=== PATIENT | male | born 1995 | race Hispanic/Latino ===

== ENCOUNTER 2017-12-06 10:14 | Emergency (ER) | payer SELFPAY ==
--- NOTE | 2017-12-06 11:42 | RAD REPORT ---
EXAM DESCRIPTION: RAD - Ankle Left 3 View -12/06/2017 11:30 am CLINICAL HISTORY: Left ankle pain status post injury FINDINGS: No fracture is seen. Soft tissue swelling is present. There is borderline widening of the medial clear space which may indicate an injury to the deltoid li gament.
--- NOTE | 2017-12-06 11:58 | EDPHYS ---
Physician Documentation [facility] Name: Vijay Levine Age: 22 yrs Sex: Male : 1995 Arrival Date: 12/06/2017 Time: 10:17 Bed 14 Private MD: None, None ED Physician Bernard Tijerina HPI: 12/06 11:55 This 22 yrs old Male presents to ER via Ambulatory with complaints of Ankle kb Injury. 11:55 The patient presents with pain, that is acute, swelling, tenderness. The complaints kb affect the left ankle. Onset: The symptoms/episode began/occurred yesterday. Context: The problem was sustained outdoors, resulted from twisted it while running in the rain, The patient can fully bear weight on the affected extremity. the patient is able to ambulate. Associated signs and symptoms: Pertinent positives: swelling, Pertinent negatives: calf tenderness, fever, nausea, numbness, rash, tingling, vomiting, warmth, weakness. Modifying factors: The symptoms are alleviated by nothing, the symptoms are aggravated by weight bearing, movement. Severity of symptoms: At their worst the symptoms were moderate, in the emergency department the symptoms are unchanged. The patient has not experienced similar symptoms in the past. The patient has not recently seen a physician. Historical: - Allergies: 10:35 No Known Allergies; aj1 - Home Meds: 10:35 None [Active]; aj1 - PMHx: 10:35 None; aj1 - PSHx: 10:35 None; aj1 - Immunization history:: Flu vaccine is not up to date. - Social history:: Smoking status: Patient/guardian denies using tobacco. - Ebola Screening: : Patient denies travel to an Ebola-affected area in the 21 days before illness onset. ROS: 11:49 Constitutional: Negative for fever, chills, and weight loss, Cardiovascular: Negative kb for chest pain, palpitations, and edema, Respiratory: Negative for shortness of breath, cough, wheezing, and pleuritic chest pain, Abdomen/GI: Negative for abdominal pain, nausea, vomiting, diarrhea, and constipation, Skin: Negative for injury, rash, and discoloration, Neuro: Negative for headache, weakness, numbness, tingling, and seizure. 11:49 MS/extremity: Positive for injury or acute deformity, pain, swelling, tenderness, of the left lateral ankle. Exam: 11:49 Constitutional: This is a well developed, well nourished patient who is awake, alert, kb and in no acute distress. Head/Face: Normocephalic, atraumatic. Chest/axilla: Normal chest wall appearance and motion. Nontender with no deformity. No lesions are appreciated. Cardiovascular: Regular rate and rhythm with a normal S1 and S2. No gallops, murmurs, or rubs. Normal PMI, no JVD. No pulse deficits. Respiratory: Lungs have equal breath sounds bilaterally, clear to auscultation and percussion. No rales, rhonchi or wheezes noted. No increased work of breathing, no retractions or nasal flaring. Abdomen/GI: Soft, non-tender, with normal bowel sounds. No distension or tympany. No guarding or rebound. No evidence of tenderness throughout. Skin: Warm, dry with normal turgor. Normal color with no rashes, no lesions, and no evidence of cellulitis. Neuro: Awake and alert, GCS 15, oriented to person, place, time, and situation. Cranial nerves II-XII grossly intact. Motor strength 5/5 in all extremities. Sensory grossly intact. Cerebellar exam normal. Normal gait. 11:49 Musculoskeletal/extremity: Extremities: grossly normal except: noted in the left lateral ankle: pain, swelling, tenderness, ROM: intact in all extremities, Circulation is intact in all extremities. Sensation intact. Weight bearing: able to fully bear weight. Vital Signs: 10:35 BP 121 / 68; Pulse 82; Resp 16; Temp 98.4(TE); Pulse Ox 98% on R/A; Weight 111.13 kg aj1 (R); Height 5 ft. 9 in. (175.26 cm) (R); Pain 7/10; 11:22 BP 119 / 66 LA (auto/lg); Pulse 92; Resp 18 S; Pulse Ox 100% on R/A; Pain 7/10; jp3 10:35 Body Mass Index 36.18 (111.13 kg, 175.26 cm) aj1 MDM: 10:53 Patient medically screened. kb 11:49 Data reviewed: vital signs, nurses notes. Data interpreted: Pulse oximetry: on room air kb is 100 %. Interpretation: normal. Counseling: I had a detailed discussion with the patient and/or guardian regarding: the historical points, exam findings, and any diagnostic results supporting the discharge/admit diagnosis, radiology results, the need for outpatient follow up, a orthopedic surgeon, to return to the emergency department if symptoms worsen or persist or if there are any questions or concerns that arise at home. 12/06 10:41 Order name: XRAY Ankle LEFT 3 view; Complete Time: 11:48 rn 12/06 11:58 Order name: Aircast Ankle Splint; Complete Time: 12:08 kb Administered Medications: No medications were administered Disposition: 12:35 Co-signature as Attending Physician, Bernard Tijerina MD. rn Disposition: 12/06/17 11:57 Discharged to Home. Impression: Sprain of ankle. - Condition is Stable. - Discharge Instructions: Ankle Sprain, [id number]. - Medication Reconciliation Form, Thank You Letter, Antibiotic Education, Prescription Opioid Use, Work release form form. - Follow up: Emergency Department; When: As needed; Reason: Worsening of condition. Follow up: Private Physician; When: 2 - 3 days; Reason: Recheck today's complaints, Continuance of care, Re-evaluation by your physician. Signatures: Dispatcher [employer] EDMS Lety Jiang, STAFF DESIGN ENGINEER-C STAFF DESIGN ENGINEER-Thomasb Angela Wilson RN RN aj1 Bernard Tijerina MD MD rn Smirch, Shelby, RN RN ss Corrections: (The following items were deleted from the chart) 12:13 11:57 12/06/2017 11:57 Discharged to Home. Impression: Sprain of ankle. Condition is ss Stable. Forms are Medication Reconciliation Form, Thank You Letter, Antibiotic Education, Prescription Opioid Use. Follow up: Emergency Department; When: As needed; Reason: Worsening of condition. Follow up: Private Physician; When: 2 - 3 days; Reason: Recheck today's complaints, Continuance of care, Re-evaluation by your physician. kb
--- NOTE | 2017-12-06 11:58 | ER ---
Nurse's Notes [facility] Name: Vijay Levine Age: 22 yrs Sex: Male : 1995 Arrival Date: 12/06/2017 Time: 10:17 Bed 14 Private MD: None, None Diagnosis: Sprain of ankle Presentation: 12/06 10:34 Presenting complaint: Patient states: He twisted his left ankle yesterday and today he aj1 was having difficulty walking because it is painful to bear weight. Transition of care: patient was not received from another setting of care. Onset of symptoms was December 05, 2017. Risk Assessment: Do you want to hurt yourself or someone else? Patient reports no desire to harm self or others. Initial Sepsis Screen: Does the patient meet any 2 criteria? No. Patient's initial sepsis screen is negative. Does the patient have a suspected source of infection? No. Patient's initial sepsis screen is negative. Care prior to arrival: None. 10:34 Method Of Arrival: Ambulatory aj 10:34 Acuity: DEVYN 4 aj1 Triage Assessment: 10:35 General: Appears in no apparent distress. uncomfortable, Behavior is calm, cooperative, aj1 appropriate for age. Pain: Complains of pain in left lateral ankle Pain currently is 7 out of 10 on a pain scale. Neuro: Level of Consciousness is awake, alert, obeys commands. Cardiovascular: Patient's skin is warm and dry. Respiratory: Airway is patent Respiratory effort is even, unlabored, Respiratory pattern is regular, symmetrical. Musculoskeletal: Range of motion: limited in left ankle. Historical: - Allergies: 10:35 No Known Allergies; aj1 - Home Meds: 10:35 None [Active]; aj1 - PMHx: 10:35 None; aj1 - PSHx: 10:35 None; aj1 - Immunization history:: Flu vaccine is not up to date. - Social history:: Smoking status: Patient/guardian denies using tobacco. - Ebola Screening: : Patient denies travel to an Ebola-affected area in the 21 days before illness onset. Screenin:15 Abuse screen: Denies threats or abuse. Denies injuries from another. Nutritional ss screening: No deficits noted. Tuberculosis screening: Never had TB. Fall Risk None identified. Assessment: 11:15 General: Appears in no apparent distress. comfortable, Behavior is calm, cooperative. ss Pain: Complains of pain in left lateral ankle Pain currently is 7 out of 10 on a pain scale. Quality of pain is described as aching, tender, Pain began yesterday. ambulated to exam room with steady gait Is continuous. Neuro: Level of Consciousness is awake, alert, obeys commands, Oriented to person, place, time, situation. Cardiovascular: Capillary refill < 3 seconds is brisk in bilateral fingers. Respiratory: Airway is patent Respiratory effort is even, unlabored, Respiratory pattern is regular, symmetrical. GI: No signs and/or symptoms were reported involving the gastrointestinal system. EENT: Nares with drainage noted Oral mucosa is moist. Derm: Skin is intact, is healthy with good turgor, Skin is moist, Skin is pink, warm \T\ dry. normal. Musculoskeletal: mild swelling noted to L lateral aspect of ankle. Vital Signs: 10:35 BP 121 / 68; Pulse 82; Resp 16; Temp 98.4(TE); Pulse Ox 98% on R/A; Weight 111.13 kg aj1 (R); Height 5 ft. 9 in. (175.26 cm) (R); Pain 7/10; 11:22 BP 119 / 66 LA (auto/lg); Pulse 92; Resp 18 S; Pulse Ox 100% on R/A; Pain 7/10; jp3 10:35 Body Mass Index 36.18 (111.13 kg, 175.26 cm) aj1 ED Course: 10:17 Patient arrived in ED. sb2 10:18 None, None is Private Physician. sb2 10:35 Triage completed. aj1 10:35 Arm band placed on Patient placed in waiting room, Patient notified of wait time. aj1 10:52 [facility]C [facility] kb 10:52 Bernard Tijerina MD is Attending Physician. kb 11:26 Bed in low position. Call light in reach. Side rails up X 1. Pulse ox on. NIBP on. jp3 11:29 X-ray completed. Portable x-ray completed in exam room. Patient tolerated procedure mh1 well. 11:30 XRAY Ankle LEFT 3 view In Process Unspecified. EDMS 11:55 Margarita Trujillo, MIGUELANGEL is Primary Nurse. ss 12:10 Luis wrap to left ankle Air stirrup applied to left ankle. jp3 12:12 No provider procedures requiring assistance completed. Patient did not have IV access ss during this emergency room visit. Administered Medications: No medications were administered Outcome: 11:57 Discharge ordered by . felicity 12:12 Discharged to home ambulatory, with family. ss 12:12 Condition: good 12:12 Discharge instructions given to patient, family, Instructed on discharge instructions, follow up and referral plans. medication usage, Demonstrated understanding of instructions, follow-up care, medications. 12:13 Patient left the ED. ss Signatures: Dispatcher [employer] EDMS Lety Jiang, SAMPLE ROOM SUPERVISOR-C SAMPLE ROOM SUPERVISOR-Ckb Angela Wilson, RN RN aj1 Dayna Kumar mh1 Margarita Trujillo, MIGUELANGEL RN Meli Santoyo sb2 Sonny Saeed jp3
== END 2017-12-06 12:13 | disposition home or self-care (01) ==
LOC: ER 10:14
DX: S93.402A Sprain of unspecified ligament of left ankle, initial encounter (principal); X58.XXXA Exposure to other specified factors, initial encounter; Y93.02 Activity, running; Y92.9 Unspecified place or not applicable
CPT/HCPCS: 99283

== ENCOUNTER 2018-01-15 16:16 | Emergency (ER) | payer SELFPAY ==
--- NOTE | 2018-01-15 16:37 | EDPHYS ---
Physician Documentation [facility] Name: Vijay Levine Age: 22 yrs Sex: Male : 1995 Arrival Date: 01/15/2018 Time: 16:17 Bed 6 Private MD: ED Physician Bernard Tijerina HPI: 01/15 16:34 This 22 yrs old Male presents to ER via Ambulatory with complaints of kb Nausea/Vomiting/Diarrhea. 16:34 The patient presents to the emergency department with nausea, vomiting, abdominal pain. kb Onset: The symptoms/episode began/occurred this morning. Possible causes: bad food exposure. The symptoms are aggravated by nothing. The symptoms are alleviated by nothing. Associated signs and symptoms: Pertinent positives: abdominal pain, nausea, vomiting, Pertinent negatives: anorexia, belching, constipation, diarrhea, dysuria, fever, flatulence, GI bleeding, hematuria. Severity of symptoms: At their worst the symptoms were mild in the emergency department the symptoms have resolved and did so earlier today. The patient has not experienced similar symptoms in the past. The patient has not recently seen a physician. Pt states he ate some cake last night and it was recalled so he's not sure if it was good. Started having mild abd pain and nausea this morning, vomited once and was sent home from work. Has eaten a meal since then and was able to keep it down. Denies any symptoms at this time, including pain and nausea. . Historical: - Allergies: 16:20 No Known Allergies; hj - Home Meds: 16:20 None [Active]; hj - PMHx: 16:20 None; hj - PSHx: 16:20 None; hj - Immunization history:: Adult Immunizations up to date. - Social history:: Smoking status: Patient/guardian denies using tobacco, Patient/guardian denies using alcohol. - Ebola Screening: : Patient negative for fever greater than or equal to 101.5 degrees Fahrenheit, and additional compatible Ebola Virus Disease symptoms Patient denies exposure to infectious person Patient denies travel to an Ebola-affected area in the 21 days before illness onset. ROS: 16:34 Constitutional: Negative for fever, chills, and weight loss, ENT: Negative for injury, kb pain, and discharge, Neck: Negative for injury, pain, and swelling, Cardiovascular: Negative for chest pain, palpitations, and edema, Respiratory: Negative for shortness of breath, cough, wheezing, and pleuritic chest pain, Abdomen/GI: Negative for abdominal pain, nausea, vomiting, diarrhea, and constipation, Back: Negative for injury and pain, : Negative for injury, bleeding, discharge, and swelling, MS/Extremity: Negative for injury and deformity, Skin: Negative for injury, rash, and discoloration, Neuro: Negative for headache, weakness, numbness, tingling, and seizure. Exam: 16:34 Constitutional: This is a well developed, well nourished patient who is awake, alert, kb and in no acute distress. Head/Face: Normocephalic, atraumatic. ENT: Nares patent. No nasal discharge, no septal abnormalities noted. Tympanic membranes are normal and external auditory canals are clear. Oropharynx with no redness, swelling, or masses, exudates, or evidence of obstruction, uvula midline. Mucous membranes moist. Neck: Trachea midline, no thyromegaly or masses palpated, and no cervical lymphadenopathy. Supple, full range of motion without nuchal rigidity, or vertebral point tenderness. No Meningismus. Chest/axilla: Normal chest wall appearance and motion. Nontender with no deformity. No lesions are appreciated. Cardiovascular: Regular rate and rhythm with a normal S1 and S2. No gallops, murmurs, or rubs. Normal PMI, no JVD. No pulse deficits. Respiratory: Lungs have equal breath sounds bilaterally, clear to auscultation and percussion. No rales, rhonchi or wheezes noted. No increased work of breathing, no retractions or nasal flaring. Abdomen/GI: Soft, non-tender, with normal bowel sounds. No distension or tympany. No guarding or rebound. No evidence of tenderness throughout. Skin: Warm, dry with normal turgor. Normal color with no rashes, no lesions, and no evidence of cellulitis. MS/ Extremity: Pulses equal, no cyanosis. Neurovascular intact. Full, normal range of motion. Neuro: Awake and alert, GCS 15, oriented to person, place, time, and situation. Cranial nerves II-XII grossly intact. Motor strength 5/5 in all extremities. Sensory grossly intact. Cerebellar exam normal. Normal gait. Vital Signs: 16:21 BP 118 / 48; Pulse 82; Resp 18; Temp 98.5(TE); Pulse Ox 99% on R/A; Weight 113.4 kg; hj Height 5 ft. 9 in. (175.26 cm); Pain 6/10; 16:21 Body Mass Index 36.92 (113.40 kg, 175.26 cm) MDM: 16:23 Patient medically screened. kb 16:28 Data reviewed: vital signs, nurses notes. Data interpreted: Pulse oximetry: on room air kb is 99 %. Interpretation: normal. 16:34 Counseling: I had a detailed discussion with the patient and/or guardian regarding: the kb historical points, exam findings, and any diagnostic results supporting the discharge/admit diagnosis, lab results, the need for outpatient follow up, a family practitioner, to return to the emergency department if symptoms worsen or persist or if there are any questions or concerns that arise at home. 16:36 ED course: Pt has no tenderness upon palpation. Denies any medical complaint at this kb time. All symptoms resolved this morning. . 01/15 16:41 Order name: Urine Dipstick--Ancillary (enter results) bd Administered Medications: No medications were administered Disposition: 17:45 Co-signature as Attending Physician, Bernard Tijerina MD. rn Disposition: 01/15/18 16:37 Discharged to Home. Impression: Nausea with vomiting, unspecified - resolved fishing boat captain. - Condition is Stable. - Discharge Instructions: Nausea and Vomiting, Adult, [id number]. - Medication Reconciliation Form, Thank You Letter, Antibiotic Education, Prescription Opioid Use, Work release form form. - Follow up: Emergency Department; When: As needed; Reason: Worsening of condition. Follow up: Private Physician; When: 2 - 3 days; Reason: Recheck today's complaints, Continuance of care, Re-evaluation by your physician. Signatures: Dispatcher [employer] EDLety Perez, ANGIE INSIDE ACCOUNT REPRESENTATIVE-Maureen Melendrez RN Bernard Harris ch, MD MD rn Joaquin, Henry, RN RN hj Corrections: (The following items were deleted from the chart) 16:51 16:37 01/15/2018 16:37 Discharged to Home. 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 Forms are Medication Reconciliation Form, Thank You Letter, Antibiotic Education, Prescription Opioid Use. Follow up: Emergency Department; When: As needed; Reason: Worsening of condition. Follow up: Private Physician; When: 2 - 3 days; Reason: Recheck today's complaints, Continuance of care, Re-evaluation by your physician. kb
--- NOTE | 2018-01-15 16:37 | ER ---
Nurse's Notes [facility] Name: Vijay Levine Age: 22 yrs Sex: Male : 1995 Arrival Date: 01/15/2018 Time: 16:17 Bed 6 Private MD: Diagnosis: Nausea with vomiting, unspecified-resolved airline captain Presentation: 01/15 16:18 Presenting complaint: Patient states: this morning i started getting nauseous and hj vomited x 1; reports abd pain on R upper area; reports diarrhea; denies fever and chills;. Transition of care: patient was not received from another setting of care. Onset of symptoms was January 15, 2018. Risk Assessment: Do you want to hurt yourself or someone else? Patient reports no desire to harm self or others. Initial Sepsis Screen: Does the patient meet any 2 criteria? No. Patient's initial sepsis screen is negative. Does the patient have a suspected source of infection? No. Patient's initial sepsis screen is negative. Care prior to arrival: None. 16:18 Method Of Arrival: Ambulatory 16:18 Acuity: DEVYN 3 hj Triage Assessment: 16:20 General: Appears in no apparent distress. uncomfortable, Behavior is calm, cooperative, hj appropriate for age. Pain: Complains of pain in abdomen. GI: Reports upper abdominal pain, diarrhea, nausea, vomiting. Historical: - Allergies: 16:20 No Known Allergies; hj - Home Meds: 16:20 None [Active]; hj - PMHx: 16:20 None; hj - PSHx: 16:20 None; hj - Immunization history:: Adult Immunizations up to date. - Social history:: Smoking status: Patient/guardian denies using tobacco, Patient/guardian denies using alcohol. - Ebola Screening: : Patient negative for fever greater than or equal to 101.5 degrees Fahrenheit, and additional compatible Ebola Virus Disease symptoms Patient denies exposure to infectious person Patient denies travel to an Ebola-affected area in the 21 days before illness onset. Screenin:20 Abuse screen: Denies threats or abuse. Denies injuries from another. Nutritional hj screening: No deficits noted. Tuberculosis screening: No symptoms or risk factors identified. Fall Risk None identified. Assessment: 16:21 GI: Abdomen is non-distended, obese. 16:28 Reassessment: Patient appears in no apparent distress at this time. Patient and/or ch family updated on plan of care and expected duration. Pain level reassessed. Patient is alert, oriented x 3, equal unlabored respirations, skin warm/dry/pink. Patient states feeling better. Patient states symptoms have improved. General: Appears in no apparent distress. comfortable, Behavior is calm, cooperative, appropriate for age. Pain: Denies pain. Neuro: No deficits noted. Level of Consciousness is awake, alert, obeys commands, Oriented to person, place, time, situation. Cardiovascular: No deficits noted. Respiratory: No deficits noted. GI: Bowel sounds present X 4 quads. Abd is soft and non tender X 4 quads. Reports vomiting, pt vomited once this morning, states he feels fine now. : No signs and/or symptoms were reported regarding the genitourinary system. Derm: Skin is pink, warm \T\ dry. Vital Signs: 16:21 BP 118 / 48; Pulse 82; Resp 18; Temp 98.5(TE); Pulse Ox 99% on R/A; Weight 113.4 kg; hj Height 5 ft. 9 in. (175.26 cm); Pain 6/10; 16:21 Body Mass Index 36.92 (113.40 kg, 175.26 cm) hj ED Course: 16:17 Patient arrived in ED. as 16:20 Triage completed. hj 16:20 Arm band placed on left wrist. hj 16:21 Patient has correct armband on for positive identification. Placed in gown. Bed in low hj position. Call light in reach. Adult w/ patient. 16:23 Lety Jiang FNP-C is [facility]. kb 16:23 Bernard Tijerina MD is Attending Physician. kb 16:28 Maureen Calderon, MIGUELANGEL is Primary Nurse. 16:28 No apparent distress. Resting quietly. 16:28 No provider procedures requiring assistance completed. Patient did not have IV access ch during this emergency room visit. 16:35 Urine collected: clean catch specimen, clear. rv Administered Medications: No medications were administered Outcome: 16:37 Discharge ordered by . kb 16:51 Discharged to home ambulatory, with family. 16:51 Condition: stable 16:51 Discharge instructions given to patient, family, Instructed on discharge instructions, follow up and referral plans. Demonstrated understanding of instructions, follow-up care. 16:51 Patient left the ED. Signatures: Lety Jiang, ANGIE MEZA-Maureen Melendrez RN RN Melissa Carrion Henry, RN RN hj Vicente, Ronaldo, RN RN rv Corrections: (The following items were deleted from the chart) 16:23 16:21 Pulse 82bpm; Resp 18bpm; Pulse Ox 99% RA; Temp 98.5F Temporal; 113.4 kg; Height 5 hj ft. 9 in.; BMI: 36.9; Pain 6/10; hj
[2018-01-15 17:17] LABS: Urine Blood NEGATIVE (NEG); Urine Glucose NEGATIVE (NEG); Urine Protein NEGATIVE (NEG); Urine Specific Gravity >1.030 (1.005-1.030)
== END 2018-01-15 16:51 | disposition home or self-care (01) ==
LOC: ER 16:16
DX: R11.2 Nausea with vomiting, unspecified (principal)
CPT/HCPCS: 81003; 99283

== ENCOUNTER 2018-08-29 20:35 | Emergency (ER) | payer SELFPAY ==
[2018-08-29] MEDS ORDERED: ACETAMINOPHEN 500 MG TAB ONE (21:09)
[2018-08-29 22:24] LABS: Urine Blood NEGATIVE (NEG); Urine Glucose NEGATIVE (NEG); Urine Protein 1+ (NEG); Urine Specific Gravity 1.025 (1.005-1.030)
--- NOTE | 2018-08-29 22:46 | ER ---
Nurse's Notes [facility] Name: Vijay Levine Age: 22 yrs Sex: Male : 1995 Arrival Date: 08/29/2018 Time: 20:40 Bed 7 Private MD: Diagnosis: Fever, unspecified;Influenza due to unidentified influenza virus Presentation: 08/29 20:45 Presenting complaint: Patient states: Fever, lightheaded and nauseated since yesterday. cc3 Transition of care: patient was not received from another setting of care. Onset of symptoms was August 28, 2018. Risk Assessment: Do you want to hurt yourself or someone else? Patient reports no desire to harm self or others. Initial Sepsis Screen: Does the patient meet any 2 criteria? Temp <36.0*C (96.8*F)) or > 38.3*C (100.9*F). HR > 90 bpm. Does the patient have a suspected source of infection? No. Patient's initial sepsis screen is negative. Care prior to arrival: None. 20:45 Method Of Arrival: Ambulatory cc3 20:45 Acuity: DEVYN 3 cc3 Triage Assessment: 20:45 General: Appears in no apparent distress. comfortable, Behavior is calm, cooperative, cc3 appropriate for age. Pain: Denies pain. EENT: No signs and/or symptoms were reported regarding the EENT system. Neuro: Level of Consciousness is awake, alert, obeys commands, Oriented to person, place, time, situation, Appropriate for age. Cardiovascular: Denies chest pain, Patient's skin is warm and dry. Respiratory: Airway is patent Respiratory effort is even, unlabored, Respiratory pattern is regular, symmetrical. GI: Reports nausea. : No signs and/or symptoms were reported regarding the genitourinary system. Derm: Skin is intact, is healthy with good turgor, Skin is pink, warm \T\ dry. normal, Skin temperature is hot. Musculoskeletal: Circulation, motion, and sensation intact. Range of motion: intact in all extremities. Historical: - Allergies: 20:45 No Known Allergies; cc3 - Home Meds: 20:45 None [Active]; cc3 - PMHx: 20:45 None; cc3 - PSHx: 20:45 Ear Tubes; cc3 - Immunization history:: Adult Immunizations not up to date. - Social history:: Smoking status: Patient/guardian denies using tobacco, never smoked. - Ebola Screening: : No symptoms or risks identified at this time. Screenin:45 Abuse screen: Denies threats or abuse. Denies injuries from another. Nutritional cc3 screening: No deficits noted. Tuberculosis screening: No symptoms or risk factors identified. Fall Risk Ambulatory Aid- None/Bed Rest/Nurse Assist (0 pts). Gait- Normal/Bed Rest/Wheelchair (0 pts) Mental Status- Oriented to own ability (0 pts). Assessment: 20:45 General: see triage assessment. cc3 21:50 Reassessment: Patient appears in no apparent distress at this time. Patient and/or cc3 family updated on plan of care and expected duration. Pain level reassessed. Patient is alert, oriented x 3, equal unlabored respirations, skin warm/dry/pink. Patient denies pain at this time. Patient states feeling better. Patient states symptoms have improved. 22:15 Reassessment: Patient appears in no apparent distress at this time. Patient and/or cc3 family updated on plan of care and expected duration. Pain level reassessed. Patient is alert, oriented x 3, equal unlabored respirations, skin warm/dry/pink. 22:50 Reassessment: Patient appears in no apparent distress at this time. Patient and/or cc3 family updated on plan of care and expected duration. Pain level reassessed. Patient is alert, oriented x 3, equal unlabored respirations, skin warm/dry/pink. ELECTRICAL CHECKOUT MECHANIC Vannesa discharged the patient home with prescriptions given. No IV cannula in situ. Patient left ER vitally stable and ambulatory with his . Patient denies pain at this time. Patient states feeling better. Patient states symptoms have improved. Vital Signs: 20:45 BP 136 / 72; Pulse 101; Resp 18 S; Temp 103.1(O); Pulse Ox 98% on R/A; Weight 113.4 kg cc3 (R); Height 5 ft. 9 in. (175.26 cm) (R); Pain 0/10; 21:53 BP 130 / 75; Pulse 92; Resp 18 S; Pulse Ox 97% on R/A; jd3 21:54 Temp 101.4(O); cc3 22:17 BP 129 / 54; Pulse 89; Resp 17 S; Pulse Ox 98% on R/A; cc3 22:21 BP 117 / 40 Supine; Pulse 91; Resp 17 S; Temp 100.6(O); Pulse Ox 97% on R/A; cc3 22:23 BP 119 / 39 Sitting; Pulse 94; Resp 18 S; Temp 100.6(O); Pulse Ox 98% on R/A; cc3 22:25 BP 108 / 39 Standing; Pulse 93; Resp 17 S; Temp 100.6(O); Pulse Ox 98% on R/A; cc3 20:45 Body Mass Index 36.92 (113.40 kg, 175.26 cm) cc3 ED Course: 20:40 Patient arrived in ED. es 20:45 Arm band placed on right wrist. Patient notified of wait time. cc3 20:45 Patient has correct armband on for positive identification. Bed in low position. Call cc3 light in reach. Side rails up X 1. Pulse ox on. NIBP on. 20:49 Gris Burleson is Primary Nurse. cc3 20:52 Triage completed. cc3 20:54 Vannesa Dimas FNP-C [facility]. snw 20:54 Mikey Becker MD is Attending Physician. snw 22:50 No provider procedures requiring assistance completed. Patient did not have IV access cc3 during this emergency room visit. Administered Medications: 20:57 Drug: Tylenol 1000 mg Route: PO; jd3 21:53 Follow up: Response: No adverse reaction; Temperature is decreased cc3 Outcome: 22:46 Discharge ordered by . snw 22:50 Discharged to home ambulatory, with family. cc3 22:50 Condition: stable 22:50 Discharge instructions given to patient, family, Instructed on discharge instructions, follow up and referral plans. medication usage, Demonstrated understanding of instructions, follow-up care, medications, Prescriptions given X 2. 22:57 Patient left the ED. cc3 Signatures: Vannesa Dimas FNP-C TEXTILE SCREEN MAKER-Csnw Sejal Bowling Jonathon RN RN jd3 Gris Burleson cc3
--- NOTE | 2018-08-29 22:47 | EDPHYS ---
Physician Documentation [facility] [place], [place] Name: Vijay Levine Age: 22 yrs Sex: Male : 1995 Arrival Date: 08/29/2018 Time: 20:40 Bed 7 Private MD: ED Physician Mikey Becker HPI: 08/29 21:16 This 22 yrs old Male presents to ER via Ambulatory with complaints of Fever, snw Nausea, Dizziness. 21:16 The patient reports fever, that was measured at 103.1 degrees Fahrenheit. Onset: The snw symptoms/episode began/occurred suddenly, last night. Modifying factors: there are no obvious modifying factors. Associated signs and symptoms: Pertinent positives: decreased appetite, nausea, sore throat. Severity of symptoms: At their worst the symptoms were moderate in the emergency department the symptoms are unchanged. The patient has not experienced similar symptoms in the past. It is unknown whether or not the patient has recently seen a physician. Historical: - Allergies: 20:45 No Known Allergies; cc3 - Home Meds: 20:45 None [Active]; cc3 - PMHx: 20:45 None; cc3 - PSHx: 20:45 Ear Tubes; cc3 - Immunization history:: Adult Immunizations not up to date. - Social history:: Smoking status: Patient/guardian denies using tobacco, never smoked. - Ebola Screening: : No symptoms or risks identified at this time. ROS: 21:15 Eyes: Negative for injury, pain, redness, and discharge, ENT: Negative for injury and snw discharge, + sore throat Neck: Negative for injury, pain, and swelling, Cardiovascular: Negative for chest pain, palpitations, and edema, Respiratory: Negative for shortness of breath, cough, wheezing, and pleuritic chest pain, Back: Negative for injury and pain, : Negative for injury, bleeding, discharge, and swelling, MS/Extremity: Negative for injury and deformity, Skin: Negative for injury, rash, and discoloration, Neuro: Negative for headache, weakness, numbness, tingling, and seizure. 21:15 Constitutional: Positive for body aches, fatigue, fever, malaise, poor PO intake. 21:15 Abdomen/GI: Positive for nausea and vomiting. Exam: 21:15 Constitutional: This is a well developed, well nourished patient who is awake, alert, snw and in no acute distress. Head/Face: Normocephalic, atraumatic. Eyes: Pupils equal round and reactive to light, extra-ocular motions intact. Lids and lashes normal. Conjunctiva and sclera are non-icteric and not injected. Cornea within normal limits. Periorbital areas with no swelling, redness, or edema. ENT: Nares patent. No nasal discharge, no septal abnormalities noted. Tympanic membranes are normal and external auditory canals are clear. Oropharynx with no redness, swelling, or masses, exudates, or evidence of obstruction, uvula midline. Mucous membranes moist. Neck: Trachea midline, no thyromegaly or masses palpated, and no cervical lymphadenopathy. Supple, full range of motion without nuchal rigidity, or vertebral point tenderness. No Meningismus. Chest/axilla: Normal chest wall appearance and motion. Nontender with no deformity. No lesions are appreciated. Cardiovascular: Regular rate and rhythm with a normal S1 and S2. No gallops, murmurs, or rubs. Normal PMI, no JVD. No pulse deficits. Respiratory: Lungs have equal breath sounds bilaterally, clear to auscultation and percussion. No rales, rhonchi or wheezes noted. No increased work of breathing, no retractions or nasal flaring. 21:15 Back: No spinal tenderness. No costovertebral tenderness. Full range of motion. Skin: Warm, dry with normal turgor. Normal color with no rashes, no lesions, and no evidence of cellulitis. MS/ Extremity: Pulses equal, no cyanosis. Neurovascular intact. Full, normal range of motion. Neuro: Awake and alert, GCS 15, oriented to person, place, time, and situation. Cranial nerves II-XII grossly intact. Motor strength 5/5 in all extremities. Sensory grossly intact. Cerebellar exam normal. Normal gait. Psych: Awake, alert, with orientation to person, place and time. Behavior, mood, and affect are within normal limits. 21:15 Abdomen/GI: Exam negative for acute changes, Inspection: abdomen appears normal. Vital Signs: 20:45 BP 136 / 72; Pulse 101; Resp 18 S; Temp 103.1(O); Pulse Ox 98% on R/A; Weight 113.4 kg cc3 (R); Height 5 ft. 9 in. (175.26 cm) (R); Pain 0/10; 21:53 BP 130 / 75; Pulse 92; Resp 18 S; Pulse Ox 97% on R/A; jd3 21:54 Temp 101.4(O); cc3 22:17 BP 129 / 54; Pulse 89; Resp 17 S; Pulse Ox 98% on R/A; cc3 22:21 BP 117 / 40 Supine; Pulse 91; Resp 17 S; Temp 100.6(O); Pulse Ox 97% on R/A; cc3 22:23 BP 119 / 39 Sitting; Pulse 94; Resp 18 S; Temp 100.6(O); Pulse Ox 98% on R/A; cc3 22:25 BP 108 / 39 Standing; Pulse 93; Resp 17 S; Temp 100.6(O); Pulse Ox 98% on R/A; cc3 20:45 Body Mass Index 36.92 (113.40 kg, 175.26 cm) cc3 MDM: 20:55 Patient medically screened. snw 22:49 Data reviewed: vital signs, nurses notes. Data interpreted: Pulse oximetry: on room air snw is 98 %. Interpretation: normal. Counseling: I had a detailed discussion with the patient and/or guardian regarding: the historical points, exam findings, and any diagnostic results supporting the discharge/admit diagnosis, lab results, the need for outpatient follow up, to return to the emergency department if symptoms worsen or persist or if there are any questions or concerns that arise at home. Special discussion: Based on the history and exam findings, there is no indication for further emergent testing or inpatient evaluation. I discussed with the patient/guardian the need to see the primary care provider for further evaluation of the symptoms. 08/29 20:55 Order name: Flu; Complete Time: 21:51 snw 08/29 20:55 Order name: Strep; Complete Time: 21:51 snw 08/29 21:41 Order name: Throat Culture EDMS 08/29 22:09 Order name: Urine Dipstick--Ancillary (enter results); Complete Time: 22:38 ar5 08/29 21:52 Order name: Urine Dipstick-Ancillary (obtain specimen); Complete Time: 22:10 snw 08/29 21:52 Order name: Recheck VS; Complete Time: 21:53 snw 08/29 22:19 Order name: Orthostatics; Complete Time: 22:31 snw 08/29 22:38 Order name: PO challenge; Complete Time: 22:42 snw Administered Medications: 20:57 Drug: Tylenol 1000 mg Route: PO; jd3 21:53 Follow up: Response: No adverse reaction; Temperature is decreased cc3 Disposition: 08/30 14:00 Co-signature as Attending Physician, Mikey Becker MD I agree with the assessment and [facility] plan of care. Disposition: 08/29/18 22:46 Discharged to Home. Impression: Fever, unspecified, Influenza due to unidentified influenza virus. - Condition is Stable. - Discharge Instructions: Fever, Adult, Influenza, Adult, Rehydration, Adult. - Prescriptions for Zofran 4 mg Oral Tablet - take 1 tablet by ORAL route every 12 hours As needed; 20 tablet. Tamiflu 75 mg Oral Capsule - take 1 tablet by ORAL route every 12 hours for 5 days; 10 tablet. - Work release form, Medication Reconciliation Form, Thank You Letter, Antibiotic Education, Prescription Opioid Use form. - Follow up: Private Physician; When: 2 - 3 days; Reason: Recheck today's complaints, Continuance of care, Re-evaluation by your physician. Follow up: Emergency Department; When: As needed; Reason: Worsening of condition. Signatures: Dispatcher [employer] Mikey Griffin MD MD cha Therrien, Shelly, SPECIAL FORCES WEAPONS SERGEANT-C [employer]GEANT-Vaibhavw Torrey Leyva, RN RN jd3 Gris Burleson cc3 Corrections: (The following items were deleted from the chart) 08/29 22:57 22:46 08/29/2018 22:46 Discharged to Home. Impression: Fever, unspecified; Influenza cc3 due to unidentified influenza virus. Condition is Stable. Forms are Medication Reconciliation Form, Thank You Letter, Antibiotic Education, Prescription Opioid Use. Follow up: Private Physician; When: 2 - 3 days; Reason: Recheck today's complaints, Continuance of care, Re-evaluation by your physician. Follow up: Emergency Department; When: As needed; Reason: Worsening of condition. snw
== END 2018-08-29 22:57 | disposition home or self-care (01) ==
LOC: ER 20:35
DX: J11.1 Influenza due to unidentified influenza virus with other respiratory manifestations (principal)
CPT/HCPCS: 81003; 87070; 87081; 87804; 99283

== ENCOUNTER 2018-08-31 02:07 | Emergency (ER) | payer SELFPAY ==
--- NOTE | 2018-08-31 02:27 | EDPHYS ---
Physician Documentation [facility] Name: Vijay Levine IV Age: 22 yrs Sex: Male : 1995 Arrival Date: 08/31/2018 Time: 02:10 Bed 6 Private MD: ED Physician Christy Bell HPI: 08/31 02:24 This 22 yrs old Male presents to ER via Ambulatory with complaints of ma2 Dizziness, Sore Throat, Difficulty Swallowing, Nausea. 02:24 Onset: The symptoms/episode began/occurred gradually, 2 day(s) ago. Associated signs ma2 and symptoms: Pertinent positives: sore throat runny nose and fevere . Severity of symptoms: At their worst the symptoms were moderate in the emergency department the symptoms are unchanged. Historical: - Allergies: 02:24 No Known Allergies; tl1 - Home Meds: 02:24 Tamiflu 75 mg Oral cap [Active]; Zofran (as hydrochloride) 4 mg Oral tab [Active]; tl1 - PMHx: 02:24 None; tl1 - PSHx: 02:24 Ear Tubes; tl1 - Immunization history:: Adult Immunizations up to date. - Social history:: Patient/guardian denies using alcohol, street drugs, The patient lives with family, Smoking status: Patient/guardian denies using tobacco, never smoked, Patient/guardian denies using alcohol, street drugs. - Family history:: not pertinent. - Ebola Screening: : Patient negative for fever greater than or equal to 101.5 degrees Fahrenheit, and additional compatible Ebola Virus Disease symptoms Patient denies exposure to infectious person Patient denies travel to an Ebola-affected area in the 21 days before illness onset. ROS: 02:24 Constitutional: Negative for fever, chills, and weight loss. ma2 02:24 ENT: Positive for nasal discharge, sore throat, Negative for pulling at ears. 02:24 All other systems are negative. Exam: 02:24 Chest/axilla: Normal chest wall appearance and motion. Nontender with no deformity. ma2 No lesions are appreciated. Cardiovascular: Regular rate and rhythm with a normal S1 and S2. No gallops, murmurs, or rubs. Normal PMI, no JVD. No pulse deficits. Respiratory: Lungs have equal breath sounds bilaterally, clear to auscultation and percussion. No rales, rhonchi or wheezes noted. No increased work of breathing, no retractions or nasal flaring. Abdomen/GI: Soft, non-tender, with normal bowel sounds. No distension or tympany. No guarding or rebound. No evidence of tenderness throughout. Neuro: Awake and alert, GCS 15, oriented to person, place, time, and situation. Cranial nerves II-XII grossly intact. Motor strength 5/5 in all extremities. Sensory grossly intact. Cerebellar exam normal. Normal gait. 02:24 ENT: TM's: are normal, Nose: is normal, Posterior pharynx: Tonsils: bilaterally enlarged, with exudate, erythema, that is moderate, peritonsillar mass, is not appreciated. Vital Signs: 02:25 BP 134 / 69; Pulse 108; Resp 17; Temp 103.1(O); Pulse Ox 97% ; Weight 113.4 kg; Height tl1 5 ft. 9 in. (175.26 cm); Pain 10/10; 02:57 BP 127 / 68; Pulse 101; Resp 17; Temp 103; Pulse Ox 100% ; Pain 8/10; tl1 02:25 Body Mass Index 36.92 (113.40 kg, 175.26 cm) tl1 MDM: 02:20 Patient medically screened. ok2 02:24 Differential diagnosis: uri, tonsellitits. Data reviewed: vital signs, nurses notes, ok2 EMS record. Counseling: I had a detailed discussion with the patient and/or guardian regarding: the historical points, exam findings, and any diagnostic results supporting the discharge/admit diagnosis, the presence of at least one elevated blood pressure reading (>120/80) during this emergency department visit, the need for outpatient follow up. Medical screen evaluation completed. [facility] emergency medical condition absent. Response to treatment: the patient's symptoms have mildly improved after treatment, the patient's symptoms have markedly improved after treatment. Administered Medications: 02:35 Drug: TORadol 60 mg Route: IM; Site: left gluteus; tl1 02:59 Follow up: Response: No adverse reaction; No change in condition tl1 02:35 Drug: Decadron 10 mg Route: IM; Site: right gluteus; tl1 02:59 Follow up: Response: No adverse reaction; No change in condition tl1 02:35 Drug: Tylenol 1000 mg Route: PO; tl1 02:58 Follow up: Response: No adverse reaction; No change in condition; Medication tl1 administered at discharge. Disposition: 08/31/18 02:26 Discharged to Home. Impression: Acute pharyngitis. - Condition is Stable. - Discharge Instructions: Pharyngitis. - Prescriptions for Tylenol- Codeine #3 300-30 mg Oral Tablet - take 2 tablet by ORAL route every 6 hours As needed; 30 tablet. Medrol (Steve) 4 mg Oral Tablets, Dose Pack - take 1 tablet by ORAL route as directed - follow package instructions; 1 packet. Zofran 4 mg/5 mL Oral Solution - take 2.5 milliliter by ORAL route every 6 hours As needed; 40 milliliter. Zithromax Z- Steve 250 mg Oral Tablet - take 1 tablet by ORAL route as directed for 5 days Day 1 - take two (2) tablets one time. Day 2, 3, 4 , 5 take one (1) tablet once daily.; 6 tablet. - Medication Reconciliation Form, Thank You Letter, Antibiotic Education, Prescription Opioid Use form. - Work release form (08/31/18 03:35). am2 - Follow up: Private Physician; When: Tomorrow; Reason: Continuance of care. Signatures: Ting York RN RN tl1 Christy Bell MD MD ma2 Rosio Caceres am2 Corrections: (The following items were deleted from the chart) 02:59 02:26 08/31/2018 02:26 Discharged to Home. Impression: Acute pharyngitis. Condition is tl1 Stable. Forms are Medication Reconciliation Form, Thank You Letter, Antibiotic Education, Prescription Opioid Use. Follow up: Private Physician; When: Tomorrow; Reason: Continuance of care. ma2
--- NOTE | 2018-08-31 02:27 | ER ---
Nurse's Notes [facility] Name: Vijay Levine IV Age: 22 yrs Sex: Male : 1995 Arrival Date: 08/31/2018 Time: 02:10 Bed 6 Private MD: Diagnosis: Acute pharyngitis Presentation: 08/31 02:20 Presenting complaint: Patient states: I was here 2 days ago and diagnosed with the flu tl1 and prescribed tamiflu and zofran. My throat is really sore and it is difficult to swallow and I am still running fever. Took 200mg ibuprofen approx 5 hours ago. Transition of care: patient was not received from another setting of care. Onset of symptoms was August 29, 2018. Risk Assessment: Do you want to hurt yourself or someone else? Patient reports no desire to harm self or others. Initial Sepsis Screen: Does the patient meet any 2 criteria? Temp <36.0*C (96.8*F)) or > 38.3*C (100.9*F). HR > 90 bpm. Does the patient have a suspected source of infection? No. Patient's initial sepsis screen is negative. Care prior to arrival: None. 02:20 Method Of Arrival: Ambulatory tl1 02:20 Acuity: DEVYN 4 tl1 Historical: - Allergies: 02:24 No Known Allergies; tl1 - Home Meds: 02:24 Tamiflu 75 mg Oral cap [Active]; Zofran (as hydrochloride) 4 mg Oral tab [Active]; tl1 - PMHx: 02:24 None; tl1 - PSHx: 02:24 Ear Tubes; tl1 - Immunization history:: Adult Immunizations up to date. - Social history:: Patient/guardian denies using alcohol, street drugs, The patient lives with family, Smoking status: Patient/guardian denies using tobacco, never smoked, Patient/guardian denies using alcohol, street drugs. - Family history:: not pertinent. - Ebola Screening: : Patient negative for fever greater than or equal to 101.5 degrees Fahrenheit, and additional compatible Ebola Virus Disease symptoms Patient denies exposure to infectious person Patient denies travel to an Ebola-affected area in the 21 days before illness onset. Screenin:39 Abuse screen: Denies threats or abuse. Denies injuries from another. Nutritional tl1 screening: No deficits noted. Tuberculosis screening: No symptoms or risk factors identified. Fall Risk None identified. Assessment: 02:35 General: Appears in no apparent distress. Behavior is calm, cooperative, appropriate tl1 for age. Pain: Complains of pain in left aspect of posterior pharynx and right aspect of posterior pharynx Pain currently is 10 out of 10 on a pain scale. Quality of pain is described as sharp. Neuro: Level of Consciousness is awake, alert, obeys commands, Oriented to person, place, time, situation. Cardiovascular: Denies chest pain. Respiratory: Airway is patent Trachea midline Respiratory effort is even, unlabored, Respiratory pattern is regular, symmetrical, Breath sounds are clear bilaterally. GI: No signs and/or symptoms were reported involving the gastrointestinal system. : No signs and/or symptoms were reported regarding the genitourinary system. EENT: Throat is reddened has enlarged tonsils bilaterally Reports difficulty swallowing pain when swallowing. Derm: No signs and/or symptoms reported regarding the dermatologic system. Vital Signs: 02:25 BP 134 / 69; Pulse 108; Resp 17; Temp 103.1(O); Pulse Ox 97% ; Weight 113.4 kg; Height tl1 5 ft. 9 in. (175.26 cm); Pain 10/10; 02:57 BP 127 / 68; Pulse 101; Resp 17; Temp 103; Pulse Ox 100% ; Pain 8/10; tl1 02:25 Body Mass Index 36.92 (113.40 kg, 175.26 cm) tl1 ED Course: 02:10 Patient arrived in ED. am2 02:19 Christy Bell MD is Attending Physician. ma2 02:20 Ting York RN is Primary Nurse. tl1 02:23 Triage completed. tl1 02:25 Arm band placed on right wrist. tl1 02:25 Patient has correct armband on for positive identification. Bed in low position. Call tl1 light in reach. Side rails up X 1. 02:39 No provider procedures requiring assistance completed. Patient did not have IV access tl1 during this emergency room visit. Administered Medications: 02:35 Drug: TORadol 60 mg Route: IM; Site: left gluteus; tl1 02:59 Follow up: Response: No adverse reaction; No change in condition tl1 02:35 Drug: Decadron 10 mg Route: IM; Site: right gluteus; tl1 02:59 Follow up: Response: No adverse reaction; No change in condition tl1 02:35 Drug: Tylenol 1000 mg Route: PO; tl1 02:58 Follow up: Response: No adverse reaction; No change in condition; Medication tl1 administered at discharge. Outcome: 02:26 Discharge ordered by . ma2 02:57 Discharged to home ambulatory, with family. tl1 02:57 Condition: good 02:57 Discharge instructions given to patient, family, Instructed on discharge instructions, follow up and referral plans. medication usage, Demonstrated understanding of instructions, follow-up care, medications, Prescriptions given X 4. 02:59 Patient left the ED. tl1 Signatures: Ting York RN RN tl1 Rosio Caceres am2 Christy Bell MD MD ma2
[2018-08-31] MEDS ORDERED: ACETAMINOPHEN 500 MG TAB ONE (02:43)
[2018-08-31] MEDS ORDERED: KETOROLAC 30 MG/ML INJ ONE (02:43)
[2018-08-31] MEDS ORDERED: DEXAMETHASONE 10 MG/ML VIAL ONE (02:43)
== END 2018-08-31 02:59 | disposition home or self-care (01) ==
LOC: ER 02:07
DX: J02.9 Acute pharyngitis, unspecified (principal)
CPT/HCPCS: 96372; 99283; J1100